=== PATIENT | male | born 1970 | race Hispanic/Latino ===

== ENCOUNTER 2018-04-21 12:49 | Emergency (ER) | payer OTHER ==
[2018-04-21 13:06] VITALS: BP 147/98; PULSE 95; RESP 16; TEMP 98; O2SAT 98
[2018-04-21] MEDS ORDERED: Tmp-Smz 800 mg-160 mg DS Tab PO STA (13:16)
[2018-04-21] MEDS ORDERED: Tdap Vaccine 0.5 ml Vial (10-64 yrs) IM ONE (13:16)
--- NOTE | 2018-04-21 14:18 | ED PDOC ---
HPI: Trauma/Fall - HPI Time Seen by Provider: 04/21/18 13:20 Chief Complaint (Nursing): Abnormal Skin Integrity Chief Complaint (Provider): Abnormal Skin Integrity History Per: Patient History/Exam Limitations: no limitations Onset/Duration Of Symptoms: Mins Additional Complaint(s): Patient is a 47 y/o male with no significant PMHx who presents to the ED for evaluation of trauma to the 4th digit of his left hand prior to arrival. 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 Patient reports to have used peroxide to stop the bleeding. PCP: None Provided Past Medical History Reviewed: Historical Data, Nursing Documentation, Vital Signs Vital Signs: Last Vital Signs Temp 98.0 F 04/21/18 13:03 Pulse 95 H 04/21/18 13:03 Resp 16 04/21/18 13:03 BP 147/98 H 04/21/18 13:03 Pulse Ox 98 04/21/18 13:03 - Medical History PMH: No Chronic Diseases Other PMH: Allergic to Penicillin - Surgical History Surgical History: No Surg Hx - Family History Family History: States: Unknown Family Hx - Home Medications Home Medications: Ambulatory Orders Medication Instructions Recorded Sulfamethoxazole/Trimethoprim 1 tab PO BID #20 tab 04/21/18 [Bactrim DS 800 mg-160 mg] - Allergies Allergies/Adverse Reactions: Allergies Allergy/AdvReac Type Severity Reaction Status Date / Time Penicillins Allergy RASH Verified 04/21/18 13:03 Review of Systems ROS Statement: Except As Marked, All Systems Reviewed And Found Negative Constitutional: Negative for: Weakness Musculoskeletal: Negative for: Hand Pain (Lack of Sensation on 4th Digit of Left) Physical Exam - Reviewed Nursing Documentation Reviewed: Yes Vital Signs Reviewed: Yes - Physical Exam Appears: Positive for: No Acute Distress Head Exam: Positive for: ATRAUMATIC, NORMAL INSPECTION, NORMOCEPHALIC Skin: Negative for: Normal Color (4th Digit on Left Hand is Black at Tip) Eye Exam: Positive for: Normal appearance Neck: Positive for: Normal Cardiovascular/Chest: Positive for: Regular Rate, Rhythm Respiratory: Positive for: Normal Breath Sounds (Bilaterally) Gastrointestinal/Abdominal: Positive for: Normal Exam Extremity: Positive for: Normal ROM (Upper/Lower) Neurologic/Psych: Positive for: Alert, Oriented - ECG O2 Sat by Pulse Oximetry: 98 (RA) Pulse Ox Interpretation: Normal Medical Decision Making Medical Decision Making: Time: 1314 Plan: [Adacel (10-64 yrs)] 0.5 ml IM [Bactrim DS Tab] 1 Tab PO Hand Left 4th Digit (Finger) [Rad] Time: 1455 Patient given 2% Lidocaine with Epinephrine to stop bleeding. Covered wound with 1 by 3 cm piece of gel foam. Scribe Attestation: Documented by Jai Arciniega, acting as a scribe for Kevin PARADA. Provider Scribe Attestation: All medical record entries made by the Scribe were at my direction and personally dictated by me. I have reviewed the chart and agree that the record accurately reflects my personal performance of the history, physical exam, medical decision making, and the department course for this patient. I have also personally directed, reviewed, and agree with the discharge instructions and disposition. Disposition - Clinical Impression Clinical Impression: Laceration - Patient ED Disposition Is Patient to be Admitted: No Doctor Will See Patient In The: Office Counseled Patient/Family Regarding: Diagnosis, Need For Followup, Rx Given - Disposition Referrals: [facility] [Outside] Disposition: Routine/Home Disposition Time: 15:06 Condition: STABLE Additional Instructions: Follow up with primary physician in 3-4 days Do not remove gel foam for 3-4 days Take all antibiotics Prescriptions: Sulfamethoxazole/Trimethoprim [Bactrim DS 800 mg-160 mg] 1 tab PO BID #20 tab Instructions: Wound Care (DC) Forms: [employer] (Amharic)
[2018-04-21] MEDS ORDERED: Absorbable Gelatin Sponge Size 12-7 ONE (14:34)
[2018-04-21] MEDS ORDERED: Lidocaine 2% w Epi 1:100,000 Inj IJ ONE (14:36)
--- NOTE | 2018-04-21 16:14 | RAD ---
Date of service: 04/21/2018 PROCEDURE: Left ring finger radiographs. HISTORY: r/o bony involvement COMPARISON: None. TECHNIQUE: AP radiograph of the left hand, as well as spot oblique and lateral images of left ring finger were obtained. FINDINGS: LEFT RING FINGER: Although the history states ring finger-there is soft tissue laceration affecting the 2nd digit the index finger. No bony involvement here seen. Soft tissue defect also was in the region of the nail. JOINTS: Normal. SOFT TISSUES: Normal. OTHER FINDINGS: None. IMPRESSION: Soft tissue defect dorsal 2nd index finger bordering the nail. No osseous involvement. No radiopaque foreign body seen.
== END 2018-04-21 15:21 | disposition home or self-care (01) ==
LOC: H.ER 12:49
DX: S61.215A Laceration without foreign body of left ring finger without damage to nail, initial encounter (principal); W26.0XXA Contact with knife, initial encounter; Y99.0 Civilian activity done for income or pay